=== PATIENT | male | born 1935 | race Caucasian/White ===

== ENCOUNTER 2016-10-29 02:21 | Emergency (ER) | payer MEDICARE, OTHER ==
[~2016-10-29] VITALS: Ht 172.7 cm; Wt 99.8 kg
[2016-10-29] MEDS ORDERED: METO25TA74 PO (02:30)
[2016-10-29] MEDS ORDERED: ASPI81TA85 PO (02:32)
[2016-10-29] MEDS ORDERED: LISI10TA4 PO (02:32)
[2016-10-29] MEDS ORDERED: PLAV75TA38 PO (02:32)
[2016-10-29] MEDS ORDERED: LEVO88TA3 PO (02:33)
[2016-10-29] MEDS ORDERED: ZETI10TA2 PO (02:35)
[2016-10-29] MEDS ORDERED: SIMV40TA2 PO (02:35)
[2016-10-29 03:24] LABS: BASO % 0.6 % (0.0-1.0); EOS # 0.2 K/mm3 (0.0-0.50); EOS % 4.5 % (0.0-3.0); LARGE UNSTAINED CELL # 0.2 K/mm3 (0.0-0.4); LARGE UNSTAINED CELL % 2.9 % (0.0-4.0); LYMPH % 33.6 % (24.0-44.0); MEAN CORPUSCULAR HEMOGLOBIN 28.5 pg (27.0-33.0); MEAN CORPUSCULAR HGB CONC 32.4 g/dl (32.0-36.5); MONO # 0.4 K/mm3 (0.0-0.8); MONO % 7.6 % (0.0-5.0); NEUTROPHILS # 2.8 K/mm3 (1.8-7.7); NEUTROPHILS % 50.8 % (36.0-66.0); PLATELET COUNT, AUTOMATED 216 k/mm3 (150-450); RED CELL DISTRIBUTION WIDTH 13.6 % (11.5-14.5); WHITE BLOOD COUNT 5.4 K/mm3 (4.0-10.0)
[2016-10-29 03:39] LABS: INR 1.01
[2016-10-29 03:48] LABS: ALBUMIN 3.6 GM/DL (3.2-5.2); ALBUMIN/GLOBULIN RATIO 1.33 (1.00-1.93); ALKALINE PHOSPHATASE 69 U/L (45-117); ALT/SGPT 32 U/L (12-78); ANION GAP 11 MEQ/L (8-16); AST/SGOT 28 U/L (15-37); BILIRUBIN,DIRECT < 0.1 MG/DL (0.0-0.2); BILIRUBIN,TOTAL 0.3 MG/DL (0.2-1.0); BLOOD UREA NITROGEN 27 MG/DL (7-18); CALCIUM LEVEL 8.5 MG/DL (8.8-10.2); CARBON DIOXIDE LEVEL 24 MEQ/L (21-32); CHLORIDE LEVEL 107 MEQ/L (98-107); CREATININE FOR GFR 1.01 MG/DL (0.70-1.30); FREE T4 0.75 NG/DL (0.76-1.46); GLOMERULAR FILTRATION RATE > 60.0 (>35); GLUCOSE, FASTING 103 MG/DL (83-110); POTASSIUM SERUM 4.1 MEQ/L (3.5-5.1); SODIUM LEVEL 142 MEQ/L (136-145); TOTAL PROTEIN 6.3 GM/DL (6.4-8.2)
[2016-10-29] MEDS ORDERED: ISOVUE-370 76% 100ML VIAL (Q9967) As Ordered ONE (04:33)
--- NOTE | 2016-10-29 05:20 | REPUSA ---
CLINICAL HISTORY: Dyspnea, exclude PE. TECHNIQUE: Multiple incremental axial, coronal and oblique images are obtained from the thoracic inle t to the upper abdomen. Intravenous contrast material was administered as per pulmonary embolism prot ocol. COMMENTS: Pacemaker wires are in good position. Diffuse bilateral interstitial pulmonary thickening. Cardiomegaly. Mild central pulmonary venous congestion. Limited evaluation of the aorta due to the phase of the contrast. Prior CABG. There is excellent opacification of pulmonary arterial system without evidence for pulmonary embolism . There is no evidence of pleural or parenchymal mass. There are no pleural effusions. There is no evid ence of hilar or mediastinal lymphadenopathy. The heart and great vessels are within normal limits. Images of the upper abdomen demonstrate no evidence of adrenal mass. The bony structures are free of lytic or blastic lesions. Multilevel degenerative changes are seen in volving the visualized thoracolumbar spine. Scattered calcifications are seen involving the aorta and major branches compatible with atherosclero sis. IMPRESSION: No evidence for pulmonary embolism. Mild congestive heart failure. Pulmonary hypertension. Chronic interstitial pulmonary disease. Mild congestion. Thank you for your kind referral of this patient.
--- NOTE | 2016-10-29 09:25 | REP ---
PORTABLE CHEST: AP portable view of the chest is performed and compared to prior study of 02/15/2016. There is cardiomegaly. Diffuse interstitial fibrosis appears unchanged. There is no evidence of acute infiltrate. Multiple sternal wires and mediastinal clips are present. The mediastinal silhouette is unchanged. Left single lead pacemaker is noted. IMPRESSION: Cardiomegaly. Chronic fibrotic changes. No evidence of acute infiltrate. Signed by Raciel Ludwig MD 10/29/2016 04:48 P
--- NOTE | 2016-10-29 09:28 | ECGEPIP ---
Stationary ECG Study [facility] - ED Test Date: 2016-10-29 Pat Name: SERENITY OBRIEN Department: Room: - Gender: M [employer]: leonardo : 1935 Requested By: LUISA Grayson Order Number: [id number] Reading MD: Katia Goins Measurements Intervals [place] Rate: 47 P: 37 [place]: 198 QRS: -55 QRSD: 185 T: 97 QT: 474 QTc: 422 Interpretive Statements SINUS BRADYCARDIA MARKED LEFT AXIS DEVIATION LEFT BUNDLE BRANCH BLOCK SIMILAR 02/15/16 Electronically Signed On 10-29-2016 9:28:26 EDT by Katia Goins
--- NOTE | 2016-10-29 09:32 | ECGEPIP ---
Stationary ECG Study [facility] - ED Test Date: 2016-10-29 Pat Name: SERENITY OBRIEN Department: Room: - Gender: M [employer]: sb : 1935 Requested By: LUISA Grayson Order Number: [id number] Reading MD: Katia Goins Measurements Intervals [place] Rate: 39 P: 40 [place]: 182 QRS: -52 QRSD: 178 T: 102 QT: 504 QTc: 410 Interpretive Statements ELECTRONIC VENTRICULAR PACEMAKER ABNORMAL RHYTHM ECG SINUS RHYTHM Electronically Signed On 10-29-2016 9:32:12 EDT by Katia Goins
[2016-10-29 11:19] VITALS: BP 145/70
== END 2016-10-29 11:44 | disposition home or self-care (01) ==
LOC: M ED 03:28
DX: R07.89 Other chest pain (principal); R94.31 Abnormal electrocardiogram [ECG] [EKG]; I44.7 Left bundle-branch block, unspecified; I48.91 Unspecified atrial fibrillation; I25.2 Old myocardial infarction; Z95.5 Presence of coronary angioplasty implant and graft; Z95.1 Presence of aortocoronary bypass graft; Z82.49 Family history of ischemic heart disease and other diseases of the circulatory system; Z88.2 Allergy status to sulfonamides; Z79.899 Other long term (current) drug therapy; Z79.02 Long term (current) use of antithrombotics/antiplatelets; Z79.82 Long term (current) use of aspirin
CPT/HCPCS: 36415; 71010; 71275; 80048; 80076; 82550; 82553; 83690; 83880; 84439; 84443; 84484; 85025; 85379; 85610; 85730; 93005; 93041; 99285; Q9967

== ENCOUNTER 2020-11-04 19:09 | Emergency (ER) | payer OTHER, MEDICARE ==
[~2020-11-04] VITALS: Ht 170.2 cm; Wt 103.9 kg
[~2020-11-04 19:09] MED LIST: ASPI81TA86 PO; LEVO88TA3 PO; LISI10TA22 PO; METO1TAB32 PO; PLAV1TAB2 PO; SIMV40TA20 PO; ZETI10TA16 PO
[2020-11-04 22:23] VITALS: BP 148/72
== END 2020-11-04 22:24 | disposition home or self-care (01) ==
LOC: M ED 19:09
DX: Z04.1 Encounter for examination and observation following transport accident (principal); Z95.1 Presence of aortocoronary bypass graft; Z95.810 Presence of automatic (implantable) cardiac defibrillator; R51.9 Headache, unspecified; R07.9 Chest pain, unspecified; I10 Essential (primary) hypertension; E78.00 Pure hypercholesterolemia, unspecified; E03.9 Hypothyroidism, unspecified; Z79.82 Long term (current) use of aspirin; Z79.899 Other long term (current) drug therapy; Z88.2 Allergy status to sulfonamides

== ENCOUNTER → 2020-11-11 | Outpatient (CLI) | payer MEDICARE, OTHER | LOC: M LABSMTC 09:55 | PROVIDERS: ATTEND Family Medicine Sports Medicine | DX: Z01.812 Encounter for preprocedural laboratory examination (principal); Z20.822 Contact with and (suspected) exposure to COVID-19 ==

== ENCOUNTER → 2021-02-14 | Outpatient (CLI) | payer MEDICARE, OTHER | LOC: M LABSMTC 11:04 | PROVIDERS: ATTEND Internal Medicine Cardiovascular Disease | DX: Z11.52 Encounter for screening for COVID-19 (principal) ==

== ENCOUNTER → 2021-10-04 | Outpatient (CLI) | payer MEDICARE, OTHER | LOC: M LABSMTC 08:50 | PROVIDERS: ATTEND Internal Medicine Cardiovascular Disease | DX: Z20.822 Contact with and (suspected) exposure to COVID-19 (principal) ==

== ENCOUNTER → 2021-10-22 | Outpatient (CLI) | payer MEDICARE, OTHER | LOC: M LABSMTC 10:11 | PROVIDERS: ATTEND Nurse Practitioner Family | DX: Z11.52 Encounter for screening for COVID-19 (principal) ==

== ENCOUNTER 2021-11-09 11:28 | Observation (INO) | payer MEDICARE, OTHER ==
[~2021-11-09] VITALS: Ht 170.2 cm; Wt 97.2 kg
[2021-11-09 12:06] LABS: BASO % 0.5 % (0.0-1.0); EOS # 0.1 10^3/uL (0.0-0.5); EOS % 1.8 % (0.0-3.0); HEMATOCRIT 34.9 % (42.0-52.0); HEMOGLOBIN 11.5 g/dl (13.5-17.5); LYMPH # 1.2 10^3/uL (1.5-5.0); MEAN CORPUSCULAR HEMOGLOBIN 30.2 pg (27.0-33.0); MEAN CORPUSCULAR VOLUME 91.6 fl (80.0-96.0); MONO # 0.7 10^3/uL (0.0-0.8); MONO % 12.1 % (2.0-8.0); NEUTROPHILS % 65.1 % (36.0-66.0); PLATELET COUNT, AUTOMATED 167 10^3/uL (150-450); RED BLOOD COUNT 3.81 10^6/uL (4.30-6.10); WHITE BLOOD COUNT 6.1 10^3/uL (4.0-10.0)
[2021-11-09 12:48] LABS: ALBUMIN 3.7 GM/DL (3.2-5.2); ALT/SGPT 23 U/L (12-78); BILIRUBIN,DIRECT 0.1 MG/DL (0.0-0.2); BILIRUBIN,TOTAL 0.4 MG/DL (0.2-1.0); BLOOD UREA NITROGEN 13 MG/DL (7-18); CALCIUM LEVEL 9.1 MG/DL (8.8-10.2); CARBON DIOXIDE LEVEL 25 MEQ/L (21-32); CHLORIDE LEVEL 108 MEQ/L (98-107); CREATININE FOR GFR 0.95 MG/DL (0.70-1.30); GLOMERULAR FILTRATION RATE > 60.0 (>35); GLUCOSE, FASTING 105 MG/DL (70-100); NT-PRO BNP 802 PG/ML (<450); SODIUM LEVEL 140 MEQ/L (136-145); THYROID STIMULATING HORMONE 0.632 uIU/ML (0.358-3.740)
[2021-11-09] MEDS ORDERED: ENTR1TAB7 PO (12:49)
[2021-11-09] MEDS ORDERED: OMEP-173 PO (12:49)
[2021-11-09] MEDS ORDERED: ASPI81TA26 PO ×2 (12:49→14:33)
[2021-11-09] MEDS ORDERED: CETI-24 PO (12:49)
[2021-11-09] MEDS ORDERED: EZET10TA21 PO (12:49)
[2021-11-09] MEDS ORDERED: CHLO125TA PO (12:49)
[2021-11-09] MEDS ORDERED: SYNT50TA PO (12:49)
[2021-11-09] MEDS ORDERED: ALPR0.25 PO (12:50)
[2021-11-09 12:53] LABS: RSV AMPLIFICATION NEGATIVE (NEGATIVE)
[2021-11-09] MEDS ORDERED: FUROSEMIDE 40MG/4ML VIAL (J1940) IV ONE (13:15)
[2021-11-09] MEDS ORDERED: ROSU10TA6 PO (14:33)
[2021-11-09] MEDS ORDERED: ACET1TAB55 PO (14:34)
[2021-11-09] MEDS ORDERED: REFR0.1D OU (14:34)
[2021-11-09] MEDS ORDERED: HOME MED LIST COMPLETE! XX SCH (14:35)
[2021-11-09 15:23] LABS: INR 1.08; PROTHROMBIN TIME 14.4 SECONDS (12.7-14.5)
[2021-11-09 15:24] LABS: PARTIAL THROMBOPLASTIN TIME 38.7 SECONDS (25.9-37.0)
[2021-11-09 15:26] LABS: D-DIMER QUANT 788.09 ng/ml (<500)
[2021-11-09 15:38] LABS: C REACTIVE PROTEIN QUANTITATIV 8.33 MG/DL (0.00-0.30)
[2021-11-09 16:28] VITALS: BP 148/68
[2021-11-09] MEDS ORDERED: ALPRAZolam 0.25 MG TAB PO PRN (16:30)
[2021-11-09] MEDS: ACETAMINOPHEN TAB 650MG DOSE (2X325MG) PO PRN ×2 (17:10→22:54)
[2021-11-09] MEDS: POLYVINYL ALCOHOL OPHTH SOLN 15 ML(LIQUITEARS) OU SCH ×2 (17:53→20:21)
[2021-11-09] MEDS ORDERED: REMDESIVIR 200 MG in NS 250 ML IV ONE (18:00)
[2021-11-09] MEDS: NS 1,000 ML IV SCH (18:02)
[2021-11-09] MEDS ORDERED: DOCUSATE SODIUM 100MG CAPSULE PO PRN (18:50)
[2021-11-09] MEDS ORDERED: BISACODYL 5 MG TAB PO PRN (18:50)
[2021-11-09] MEDS ORDERED: SODIUM CHLORIDE 0.9% INJ 10 ML SYR IV ONE (19:00)
[2021-11-09 19:53] VITALS: BP 106/57
[2021-11-09] MEDS: OMEPRAZOLE 20MG CAP PO SCH (20:21)
[2021-11-09] MEDS: ENTRESTO 49-51MG TABLET (SACUBITRIL/VALSARTAN) PO SCH (20:21)
[2021-11-09] MEDS: RAMELTEON 8 MG TAB (ROZEREM) PO PRN (23:01)
[2021-11-10 04:00] VITALS: BP 135/63
[2021-11-10] MEDS: LEVOTHYROXINE 50MCG TABLET (0.05MG) PO SCH (05:52)
[2021-11-10] MEDS: ACETAMINOPHEN TAB 650MG DOSE (2X325MG) PO PRN ×2 (05:53→20:19)
[2021-11-10 06:40] LABS: HEMATOCRIT 31.7 % (42.0-52.0); HEMOGLOBIN 10.2 g/dl (13.5-17.5); MEAN CORPUSCULAR HEMOGLOBIN 29.3 pg (27.0-33.0); MEAN CORPUSCULAR HGB CONC 32.2 g/dl (32.0-36.5); MEAN CORPUSCULAR VOLUME 91.1 fl (80.0-96.0); PLATELET COUNT, AUTOMATED 145 10^3/uL (150-450); RED BLOOD COUNT 3.48 10^6/uL (4.30-6.10)
[2021-11-10 07:12] LABS: ALBUMIN 3.2 GM/DL (3.2-5.2); ALT/SGPT 19 U/L (12-78); BILIRUBIN,TOTAL 0.5 MG/DL (0.2-1.0); BLOOD UREA NITROGEN 18 MG/DL (7-18); CALCIUM LEVEL 8.4 MG/DL (8.8-10.2); CARBON DIOXIDE LEVEL 24 MEQ/L (21-32); CHLORIDE LEVEL 109 MEQ/L (98-107); CREATININE FOR GFR 0.98 MG/DL (0.70-1.30); GLOMERULAR FILTRATION RATE > 60.0 (>35); GLUCOSE, FASTING 102 MG/DL (70-100); POTASSIUM SERUM 3.5 MEQ/L (3.5-5.1); SODIUM LEVEL 140 MEQ/L (136-145); TOTAL PROTEIN 5.8 GM/DL (6.4-8.2)
[2021-11-10] MEDS: NS 1,000 ML IV SCH (08:19)
[2021-11-10] MEDS: CHLORTHALIDONE 25 MG TAB PO SCH (08:20)
[2021-11-10] MEDS: LIDOCAINE 5% (LIDODERM) PATCH TD SCH (08:20)
[2021-11-10] MEDS: CETIRIZINE (ZyrTEC) 10 MG TAB PO SCH (08:20)
[2021-11-10] MEDS: CLOPIDOGREL 75 MG TAB PO SCH (08:20)
[2021-11-10] MEDS: OMEPRAZOLE 20MG CAP PO SCH ×2 (08:20→20:18)
[2021-11-10] MEDS: ASPIRIN 81MG ENTERIC TABLET PO SCH (08:20)
[2021-11-10] MEDS: ROSUVASTATIN 10 MG TAB (CRESTOR) PO SCH (08:20)
[2021-11-10 08:21] VITALS: BP 129/67
[2021-11-10] MEDS: POLYVINYL ALCOHOL OPHTH SOLN 15 ML(LIQUITEARS) OU SCH ×4 (08:21→21:02)
[2021-11-10] MEDS: METOPROLOL SUCC *XL* 12.5MG PER 1/2 TAB (TopROL *XL*) PO SCH (08:21)
[2021-11-10] MEDS: EZETIMIBE 10MG TABLET (ZETIA) PO SCH (08:21)
[2021-11-10] MEDS: ENTRESTO 49-51MG TABLET (SACUBITRIL/VALSARTAN) PO SCH ×2 (08:22→20:18)
[2021-11-10] MEDS: REMDESIVIR 100 MG in NS 250 ML IV SCH (13:30)
[2021-11-10 13:43] VITALS: BP 123/64
[2021-11-10] MEDS ORDERED: SODIUM CHLORIDE 0.9% INJ 10 ML SYR IV SCH ×2 (16:00→19:00)
[2021-11-10] MEDS ORDERED: REMDESIVIR 100 MG in NS 250 ML IV SCH (18:00)
[2021-11-10] MEDS ORDERED: **NOTE PATIENT COMMENT** MISC XX SCH (19:00)
[2021-11-10 20:04] VITALS: BP 137/66
[2021-11-10] MEDS: RAMELTEON 8 MG TAB (ROZEREM) PO PRN (20:17)
[2021-11-11] MEDS: LEVOTHYROXINE 50MCG TABLET (0.05MG) PO SCH (05:59)
[2021-11-11 06:00] VITALS: BP 140/73
[2021-11-11 06:12] LABS: HEMATOCRIT 35.4 % (42.0-52.0); HEMOGLOBIN 11.7 g/dl (13.5-17.5); MEAN CORPUSCULAR HEMOGLOBIN 29.9 pg (27.0-33.0); MEAN CORPUSCULAR HGB CONC 33.1 g/dl (32.0-36.5); MEAN CORPUSCULAR VOLUME 90.5 fl (80.0-96.0); PLATELET COUNT, AUTOMATED 164 10^3/uL (150-450); RED BLOOD COUNT 3.91 10^6/uL (4.30-6.10); WHITE BLOOD COUNT 5.2 10^3/uL (4.0-10.0)
[2021-11-11 06:37] LABS: ALBUMIN 3.4 GM/DL (3.2-5.2); ALT/SGPT 22 U/L (12-78); BILIRUBIN,TOTAL 0.3 MG/DL (0.2-1.0); BLOOD UREA NITROGEN 19 MG/DL (7-18); CALCIUM LEVEL 9.1 MG/DL (8.8-10.2); CARBON DIOXIDE LEVEL 25 MEQ/L (21-32); CHLORIDE LEVEL 108 MEQ/L (98-107); CREATININE FOR GFR 0.99 MG/DL (0.70-1.30); GLOMERULAR FILTRATION RATE > 60.0 (>35); GLUCOSE, FASTING 99 MG/DL (70-100); POTASSIUM SERUM 3.8 MEQ/L (3.5-5.1); SODIUM LEVEL 139 MEQ/L (136-145); TOTAL PROTEIN 6.7 GM/DL (6.4-8.2)
[2021-11-11] MEDS: OMEPRAZOLE 20MG CAP PO SCH (08:45)
[2021-11-11] MEDS: ENTRESTO 49-51MG TABLET (SACUBITRIL/VALSARTAN) PO SCH (08:45)
[2021-11-11] MEDS: CLOPIDOGREL 75 MG TAB PO SCH (08:45)
[2021-11-11] MEDS: CETIRIZINE (ZyrTEC) 10 MG TAB PO SCH (08:45)
[2021-11-11] MEDS: ASPIRIN 81MG ENTERIC TABLET PO SCH (08:45)
[2021-11-11] MEDS: ROSUVASTATIN 10 MG TAB (CRESTOR) PO SCH (08:45)
[2021-11-11] MEDS: CHLORTHALIDONE 25 MG TAB PO SCH (08:45)
[2021-11-11] MEDS: EZETIMIBE 10MG TABLET (ZETIA) PO SCH (08:45)
[2021-11-11] MEDS: METOPROLOL SUCC *XL* 12.5MG PER 1/2 TAB (TopROL *XL*) PO SCH ×2 (08:48→09:00)
[2021-11-11] MEDS: POLYVINYL ALCOHOL OPHTH SOLN 15 ML(LIQUITEARS) OU SCH (08:48)
[2021-11-11] MEDS: LIDOCAINE 5% (LIDODERM) PATCH TD SCH (08:49)
[2021-11-11] MEDS: REMDESIVIR 100 MG in NS 250 ML IV SCH (11:31)
[2021-11-11] MEDS ORDERED: REMDESIVIR 100 MG in NS 250 ML IV SCH (12:00)
== END 2021-11-11 13:30 | disposition home health service (06) ==
LOC: M ED 11:28 → M ED INP 11:29 → INTOOBSV 14:04 → M ED INP 14:04 → UNDOADMOB 14:04 → ENRESERV 15:04 → M ED INP 16:28 → M 4MAIN 16:28
PROVIDERS: ADMIT Internal Medicine; ATTEND Internal Medicine
DX: U07.1 COVID-19 (principal); I28.8 Other diseases of pulmonary vessels; I25.10 Atherosclerotic heart disease of native coronary artery without angina pectoris; Z95.1 Presence of aortocoronary bypass graft; Z95.5 Presence of coronary angioplasty implant and graft; Z95.0 Presence of cardiac pacemaker; G47.33 Obstructive sleep apnea (adult) (pediatric); F41.9 Anxiety disorder, unspecified; F32.A Depression, unspecified; I11.9 Hypertensive heart disease without heart failure; E78.5 Hyperlipidemia, unspecified; E03.9 Hypothyroidism, unspecified; K21.9 Gastro-esophageal reflux disease without esophagitis; R94.31 Abnormal electrocardiogram [ECG] [EKG]; I44.7 Left bundle-branch block, unspecified; M79.89 Other specified soft tissue disorders; Z91.81 History of falling; Z88.2 Allergy status to sulfonamides; Z79.899 Other long term (current) drug therapy; Z79.82 Long term (current) use of aspirin; Z79.02 Long term (current) use of antithrombotics/antiplatelets; Z87.891 Personal history of nicotine dependence
CPT/HCPCS: 36415; 71045; 80047; 80048; 80053; 80076; 82550; 82728; 83615; 83880; 84443; 84484; 85025; 85027; 85379; 85384; 85610; 85730; 86140; 87631; 93005; 96361; 96365; 96366; 96375; 96376; 97161; 99284; G0378; J0248; J1940

== ENCOUNTER 2023-01-09 15:16 | Inpatient (IN) | payer MEDICARE, OTHER ==
[~2023-01-09] VITALS: Ht 167.6 cm; Wt 90.3 kg
[~2023-01-09 15:16] MED LIST changes: +ACET1TAB55 PO; +ALPR0.25 PO; +ASPI81TA26 PO; +CETI-24 PO; +CHLO125TA PO; +CLOP75TA99 PO; +ENTR1TAB7 PO; +EZET10TA21 PO; +OMEP-173 PO; -PLAV1TAB2 PO; +REFR0.1D OU; +ROSU10TA6 PO; +SYNT50TA PO
[2023-01-09 16:18] LABS: BASO % 0.3 % (0.0-1.0); EOS # 0.2 10^3/uL (0.0-0.5); EOS % 1.9 % (0.0-3.0); HEMATOCRIT 38.2 % (42.0-52.0); HEMOGLOBIN 12.6 g/dl (13.5-17.5); LYMPH # 1.3 10^3/uL (1.5-5.0); LYMPH % 13.8 % (24.0-44.0); MEAN CORPUSCULAR HEMOGLOBIN 29.4 pg (27.0-33.0); MONO # 0.7 10^3/uL (0.0-0.8); MONO % 7.4 % (2.0-8.0); NEUTROPHILS # 7.1 10^3/uL (1.5-8.5); NEUTROPHILS % 76.3 % (36.0-66.0); PLATELET COUNT, AUTOMATED 195 10^3/uL (150-450); RED BLOOD COUNT 4.29 10^6/uL (4.30-6.10); WHITE BLOOD COUNT 9.3 10^3/uL (4.0-10.0)
[2023-01-09 16:29] LABS: INR 0.96
[2023-01-09 16:38] LABS: LIPASE 32 U/L (12-53)
[2023-01-09 16:40] LABS: AMYLASE 84 U/L (30-118)
[2023-01-09 16:51] LABS: ALBUMIN 4.4 G/DL (3.2-5.2); ALKALINE PHOSPHATASE 60 U/L (46-116); ALT/SGPT 18 U/L (7.0-40); AST/SGOT < 8 U/L (<34); BILIRUBIN,DIRECT 0.1 MG/DL (<0.4); BILIRUBIN,TOTAL 0.4 MG/DL (0.3-1.2); BLOOD UREA NITROGEN 19 MG/DL (9-23); CALCIUM LEVEL 10.2 MG/DL (8.3-10.6); CARBON DIOXIDE LEVEL 26 MMOL/L (20-31); CHLORIDE LEVEL 105 MMOL/L (98-107); CREATININE FOR GFR 0.83 MG/DL (0.70-1.30); GLOMERULAR FILTRATION RATE > 60.0 (>35); GLUCOSE, FASTING 98 MG/DL (74-106); POTASSIUM SERUM 4.1 MMOL/L (3.5-5.1); SODIUM LEVEL 139 MMOL/L (136-145); TOTAL PROTEIN 7.1 G/DL (5.7-8.2)
[2023-01-09] MEDS ORDERED: ISOVUE-370 76% 100ML VIAL As Ordered ONE (16:56)
[2023-01-09] MEDS ORDERED: ONDANSETRON 4MG 2ML VIAL IV ONE (18:05)
[2023-01-09] MEDS ORDERED: MORPHINE 2 MG/ML 1ML VIAL IV PRN (18:05)
[2023-01-09] MEDS ORDERED: LIDOCAINE 2% MDV 20ML VIAL SC ONE (18:10)
[2023-01-09] MEDS ORDERED: FLEET ENEMA PR STA (18:26)
[2023-01-10] MEDS ORDERED: ACETAMINOPHEN TAB 650MG DOSE (2X325MG) PO PRN (00:25)
[2023-01-10] MEDS ORDERED: KETOROLAC 30 MG/ML 1ML VIAL IV PRN (01:50)
[2023-01-10 01:54] LABS: RSV AMPLIFICATION NEGATIVE (NEGATIVE)
[2023-01-10 02:30] VITALS: BP 137/63; TEMP 96.3; O2SAT 96
[2023-01-10 04:00] VITALS: BP 115/56; TEMP 96.4; O2SAT 93
[2023-01-10] MEDS ORDERED: FURO20TA2 PO (06:33)
[2023-01-10] MEDS ORDERED: VITA500T9 PO (06:33)
[2023-01-10] MEDS ORDERED: NITR0.1S PO (06:33)
[2023-01-10] MEDS ORDERED: DOCU100C16 PO (06:33)
[2023-01-10] MEDS ORDERED: ISOS120T7 PO (06:33)
[2023-01-10] MEDS ORDERED: HOME MED LIST COMPLETE! XX SCH (06:35)
[2023-01-10 07:28] VITALS: BP 116/57; TEMP 96.3; O2SAT 95
[2023-01-10] MEDS ORDERED: DOCUSATE SODIUM 100MG CAPSULE PO SCH (09:00)
[2023-01-10] MEDS ORDERED: MIRALAX *UNIT DOSE* 17GM PACKET PO SCH (09:00)
[2023-01-10] MEDS ORDERED: METAMUCIL (PSYLLIUM) PACKET PO SCH (09:00)
[2023-01-10] MEDS ORDERED: ENOXAPARIN 40MG/0.4ML SYRINGE (J1650 PER 10MG) SC SCH (09:00)
[2023-01-10] MEDS ORDERED: META1POW PO (09:28)
[2023-01-10] MEDS ORDERED: MIRA1POW3 PO (09:28)
[2023-01-10] MEDS ORDERED: FLOM0.4C39 PO (11:19)
== END 2023-01-10 12:31 | disposition home health service (06) | DRG 728 ==
LOC: EDBD 15:16 → M ED 15:16 → M ED INP 23:55 → M PCU 01-10 02:27
PROVIDERS: ADMIT Family Medicine; ATTEND Family Medicine
PROC: 0H8AXZZ Division of Inguinal Skin, External Approach (ICD-10-PCS; principal; 2023-01-09)
DX: N47.2 Paraphimosis (principal); I50.22 Chronic systolic (congestive) heart failure; K56.41 Fecal impaction; R53.1 Weakness; R33.9 Retention of urine, unspecified; I25.10 Atherosclerotic heart disease of native coronary artery without angina pectoris; Z95.5 Presence of coronary angioplasty implant and graft; I11.0 Hypertensive heart disease with heart failure; E78.5 Hyperlipidemia, unspecified; E03.9 Hypothyroidism, unspecified; F41.9 Anxiety disorder, unspecified; F32.A Depression, unspecified; K21.9 Gastro-esophageal reflux disease without esophagitis; Z90.49 Acquired absence of other specified parts of digestive tract; Z87.891 Personal history of nicotine dependence; B96.20 Unspecified Escherichia coli [E. coli] as the cause of diseases classified elsewhere; Z79.82 Long term (current) use of aspirin; Z79.890 Hormone replacement therapy; Z79.899 Other long term (current) drug therapy; Z88.2 Allergy status to sulfonamides; Z20.822 Contact with and (suspected) exposure to COVID-19

== ENCOUNTER 2023-01-13 15:12 | Emergency (ER) | payer MEDICARE, OTHER ==
[~2023-01-13] VITALS: Ht 170.2 cm; Wt 90.9 kg
[~2023-01-13 15:12] MED LIST changes: +DOCU100C16 PO; +FLOM0.4C39 PO; +FURO20TA2 PO; +ISOS120T7 PO; +META1POW PO; +MIRA1POW3 PO; +NITR0.1S PO; +VITA500T9 PO
[2023-01-13 18:00] VITALS: TEMP 98.7
[2023-01-13] MEDS ORDERED: NS 1,000 ML IV ONE (18:35)
[2023-01-13 19:12] VITALS: BP 108/57; O2SAT 97
[2023-01-13 19:20] LABS: BASO % 0.6 % (0.0-1.0); EOS # 0.2 10^3/uL (0.0-0.5); EOS % 3.6 % (0.0-3.0); HEMATOCRIT 33.3 % (42.0-52.0); HEMOGLOBIN 10.9 g/dl (13.5-17.5); LYMPH # 1.5 10^3/uL (1.5-5.0); MEAN CORPUSCULAR HEMOGLOBIN 29.2 pg (27.0-33.0); MEAN CORPUSCULAR HGB CONC 32.7 g/dl (32.0-36.5); MEAN CORPUSCULAR VOLUME 89.3 fl (80.0-96.0); MONO # 0.6 10^3/uL (0.0-0.8); MONO % 8.7 % (2.0-8.0); NEUTROPHILS % 62.9 % (36.0-66.0); PLATELET COUNT, AUTOMATED 184 10^3/uL (150-450); RED BLOOD COUNT 3.73 10^6/uL (4.30-6.10); WHITE BLOOD COUNT 6.4 10^3/uL (4.0-10.0)
[2023-01-13 19:34] LABS: ERYTHROCYTE SEDIMENTATION RATE 26 mm/hr (0-20)
[2023-01-13 19:41] LABS: APPEARANCE, URINE CLOUDY (CLEAR); BACTERIA, URINE AUTO 1+ (NEGATIVE); BILIRUBIN, URINE AUTO NEGATIVE (NEGATIVE); BLOOD, URINE BLOOD 3+ (NEGATIVE); COLOR, URINE YELLOW (YELLOW); GLUCOSE, URINE (UA) AUTO NEGATIVE (NEGATIVE); KETONE, URINE AUTO TRACE mg/dL (NEGATIVE); LEUKOCYTE ESTERASE, URINE AUTO 3+ (NEGATIVE); MUCUS, URINE SMALL (NEGATIVE); NITRITE, URINE AUTO POSITIVE (NEGATIVE); PROTEIN, URINE AUTO 2+ mg/dL (NEGATIVE); RBC, URINE AUTO TNTC /HPF (0-3); SPECIFIC GRAVITY URINE AUTO 1.017 (1.002-1.035); SQUAMOUS EPITHELIAL CELL UR AU 2 /HPF (0-6); UROBILINOGEN, URINE AUTO 0.2 mg/dL (0.0-2.0); WBC, URINE AUTO 163 /HPF (0-3)
== END 2023-01-13 21:40 | disposition home or self-care (01) ==
LOC: M ED 15:12
DX: T83.098A Other mechanical complication of other urinary catheter, initial encounter (principal); R33.9 Retention of urine, unspecified; I11.9 Hypertensive heart disease without heart failure; I50.20 Unspecified systolic (congestive) heart failure; I25.2 Old myocardial infarction; R51.9 Headache, unspecified; G47.33 Obstructive sleep apnea (adult) (pediatric); E03.9 Hypothyroidism, unspecified; Z95.5 Presence of coronary angioplasty implant and graft

== ENCOUNTER 2023-01-16 08:26 | Emergency (ER) | payer MEDICARE, OTHER ==
[~2023-01-16] VITALS: Ht 170.2 cm; Wt 91.2 kg
[2023-01-16] MEDS ORDERED: NS 500 ML IV ONE (11:25)
[2023-01-16] MEDS ORDERED: cefTRIAXone SOD 1 GM in D5W MINI-BAG PLUS 50 ML IV ONE (11:25)
[2023-01-16 12:01] LABS: BASO % 0.5 % (0.0-1.0); EOS # 0.3 10^3/uL (0.0-0.5); EOS % 4.7 % (0.0-3.0); HEMATOCRIT 34.5 % (42.0-52.0); HEMOGLOBIN 11.3 g/dl (13.5-17.5); LYMPH # 1.7 10^3/uL (1.5-5.0); LYMPH % 24.8 % (24.0-44.0); MEAN CORPUSCULAR HEMOGLOBIN 29.2 pg (27.0-33.0); MEAN CORPUSCULAR HGB CONC 32.8 g/dl (32.0-36.5); MEAN CORPUSCULAR VOLUME 89.1 fl (80.0-96.0); MONO # 0.6 10^3/uL (0.0-0.8); MONO % 8.9 % (2.0-8.0); NEUTROPHILS % 60.8 % (36.0-66.0); PLATELET COUNT, AUTOMATED 196 10^3/uL (150-450); RED BLOOD COUNT 3.87 10^6/uL (4.30-6.10); WHITE BLOOD COUNT 6.6 10^3/uL (4.0-10.0)
[2023-01-16 12:03] LABS: APPEARANCE, URINE HAZY (CLEAR); BACTERIA, URINE AUTO 2+ (NEGATIVE); BILIRUBIN, URINE AUTO NEGATIVE (NEGATIVE); BLOOD, URINE BLOOD 3+ (NEGATIVE); COLOR, URINE YELLOW (YELLOW); GLUCOSE, URINE (UA) AUTO NEGATIVE (NEGATIVE); KETONE, URINE AUTO NEGATIVE (NEGATIVE); LEUKOCYTE ESTERASE, URINE AUTO 3+ (NEGATIVE); MUCUS, URINE SMALL (NEGATIVE); NITRITE, URINE AUTO POSITIVE (NEGATIVE); PROTEIN, URINE AUTO 2+ mg/dL (NEGATIVE); RBC, URINE AUTO 102 /HPF (0-3); SPECIFIC GRAVITY URINE AUTO 1.017 (1.002-1.035); SQUAMOUS EPITHELIAL CELL UR AU 0 /HPF (0-6); UROBILINOGEN, URINE AUTO 0.2 mg/dL (0.0-2.0); WBC, URINE AUTO 103 /HPF (0-3)
[2023-01-16 12:30] LABS: BLOOD UREA NITROGEN 15 MG/DL (9-23); CALCIUM LEVEL 8.9 MG/DL (8.3-10.6); CARBON DIOXIDE LEVEL 22 MMOL/L (20-31); CHLORIDE LEVEL 106 MMOL/L (98-107); CREATININE FOR GFR 0.78 MG/DL (0.70-1.30); GLOMERULAR FILTRATION RATE > 60.0 (>35); GLUCOSE, FASTING 92 MG/DL (74-106); POTASSIUM SERUM 4.1 MMOL/L (3.5-5.1); SODIUM LEVEL 140 MMOL/L (136-145)
[2023-01-16] MEDS ORDERED: BACI500O8 TOP (13:31)
[2023-01-16] MEDS ORDERED: CEFD300CAP PO (13:31)
[2023-01-16 14:12] VITALS: BP 137/65; TEMP 97.3; O2SAT 95
== END 2023-01-16 14:17 | disposition home or self-care (01) ==
LOC: M ED 08:26
DX: N39.0 Urinary tract infection, site not specified (principal); B96.20 Unspecified Escherichia coli [E. coli] as the cause of diseases classified elsewhere; N48.1 Balanitis; Z88.2 Allergy status to sulfonamides; Z79.899 Other long term (current) drug therapy; Z79.82 Long term (current) use of aspirin
CPT/HCPCS: 80047; 80048; 81001; 85025; 96365; 99284; J0696

== ENCOUNTER → 2023-02-02 | Outpatient (REF) | payer MEDICARE, OTHER ==
[~2023-02-02] MED LIST changes: +BACI500O8 TOP; +CEFD300CAP PO
[2023-02-02 18:28] LABS: APPEARANCE, URINE CLEAR (CLEAR); BACTERIA, URINE AUTO NEGATIVE (NEGATIVE); BILIRUBIN, URINE AUTO NEGATIVE (NEGATIVE); BLOOD, URINE BLOOD 3+ (NEGATIVE); COLOR, URINE STRAW (YELLOW); GLUCOSE, URINE (UA) AUTO NEGATIVE (NEGATIVE); KETONE, URINE AUTO NEGATIVE (NEGATIVE); LEUKOCYTE ESTERASE, URINE AUTO NEGATIVE (NEGATIVE); NITRITE, URINE AUTO NEGATIVE (NEGATIVE); PROTEIN, URINE AUTO NEGATIVE (NEGATIVE); RBC, URINE AUTO 15 /HPF (0-3); SPECIFIC GRAVITY URINE AUTO 1.005 (1.002-1.035); SQUAMOUS EPITHELIAL CELL UR AU 0 /HPF (0-6); UROBILINOGEN, URINE AUTO 0.2 mg/dL (0.0-2.0); WBC, URINE AUTO 1 /HPF (0-3)
== END ==
LOC: M SHH 17:27
PROVIDERS: ATTEND Physician Assistant
DX: R30.0 Dysuria (principal)

== ENCOUNTER 2023-06-19 11:00 | Emergency (ER) | payer MEDICARE, OTHER ==
[~2023-06-19] VITALS: Ht 170.2 cm; Wt 87.3 kg
[~2023-06-19 11:00] MED LIST changes: +EZET10TA58 PO; -ZETI10TA16 PO
[2023-06-19] MEDS ORDERED: VITA200012 PO (11:29)
[2023-06-19 12:02] LABS: BASO % 0.5 % (0.0-1.0); EOS # 0.3 10^3/uL (0.0-0.5); EOS % 5.6 % (0.0-3.0); HEMATOCRIT 35.1 % (42.0-52.0); HEMOGLOBIN 11.7 g/dl (13.5-17.5); LYMPH # 1.4 10^3/uL (1.5-5.0); LYMPH % 23.7 % (24.0-44.0); MEAN CORPUSCULAR HEMOGLOBIN 29.2 pg (27.0-33.0); MEAN CORPUSCULAR HGB CONC 33.3 g/dl (32.0-36.5); MEAN CORPUSCULAR VOLUME 87.5 fl (80.0-96.0); MONO # 0.5 10^3/uL (0.0-0.8); MONO % 8.7 % (2.0-8.0); NEUTROPHILS # 3.5 10^3/uL (1.5-8.5); NEUTROPHILS % 61.2 % (36.0-66.0); PLATELET COUNT, AUTOMATED 190 10^3/uL (150-450); RED BLOOD COUNT 4.01 10^6/uL (4.30-6.10); WHITE BLOOD COUNT 5.8 10^3/uL (4.0-10.0)
[2023-06-19 12:22] LABS: BLOOD UREA NITROGEN 17 MG/DL (9-23); CALCIUM LEVEL 9.1 MG/DL (8.3-10.6); CARBON DIOXIDE LEVEL 22 MMOL/L (20-31); CHLORIDE LEVEL 107 MMOL/L (98-107); CREATININE FOR GFR 0.74 MG/DL (0.70-1.30); GLOMERULAR FILTRATION RATE > 60.0 (>35); GLUCOSE, FASTING 123 MG/DL (74-106); POTASSIUM SERUM 4.3 MMOL/L (3.5-5.1); SODIUM LEVEL 138 MMOL/L (136-145)
[2023-06-19] MEDS ORDERED: NS 500 ML IV ONE (12:45)
[2023-06-19] MEDS ORDERED: ACETAMINOPHEN *IV* 500 MG in IV 1 EA IV ONE (12:45)
[2023-06-19] MEDS ORDERED: ISOVUE-370 76% 100ML VIAL As Ordered ONE (12:56)
[2023-06-19 13:57] LABS: INR 1.12; PROTHROMBIN TIME 14.1 SECONDS (12.5-14.5)
[2023-06-19 13:58] LABS: PARTIAL THROMBOPLASTIN TIME 34.4 SECONDS (24.8-34.2)
[2023-06-19 14:05] LABS: C REACTIVE PROTEIN QUANTITATIV < 0.40 MG/DL (<1.0)
[2023-06-19 14:09] LABS: THYROID STIMULATING HORMONE 0.828 uIU/ML (0.55-4.78)
[2023-06-19 16:15] VITALS: BP 151/76; TEMP 97.5; O2SAT 97
[2023-06-19] MEDS ORDERED: PRED20TA PO (16:18)
== END 2023-06-19 16:28 | disposition home or self-care (01) ==
LOC: M ED 11:00 → EDBD 11:00 → M ED 16:28
DX: R51.9 Headache, unspecified (principal); H53.8 Other visual disturbances; H53.10 Unspecified subjective visual disturbances; Z86.69 Personal history of other diseases of the nervous system and sense organs; I25.10 Atherosclerotic heart disease of native coronary artery without angina pectoris; E03.9 Hypothyroidism, unspecified; Z79.899 Other long term (current) drug therapy; Z88.2 Allergy status to sulfonamides
CPT/HCPCS: 70450; 70496; 70498; 80048; 84443; 85025; 85610; 85652; 85730; 86140; 93041; 94760; 96365; 99285; J0131; Q9967

== ENCOUNTER 2023-08-07 17:14 | Observation (INO) | payer MEDICARE, OTHER ==
[~2023-08-07] VITALS: Ht 170.2 cm; Wt 83.3 kg
[~2023-08-07 17:14] MED LIST changes: -MIRA1POW3 PO; +MIRA33506 PO; +PRED20TA PO; +VITA200012 PO
[2023-08-07] MEDS ORDERED: ISOVUE-370 76% 100ML VIAL As Ordered ONE (18:20)
[2023-08-07 19:22] LABS: HEMATOCRIT 36.5 % (42.0-52.0); HEMOGLOBIN 12.1 g/dl (13.5-17.5); MEAN CORPUSCULAR HEMOGLOBIN 28.7 pg (27.0-33.0); MEAN CORPUSCULAR HGB CONC 33.2 g/dl (32.0-36.5); MEAN CORPUSCULAR VOLUME 86.5 fl (80.0-96.0); PLATELET COUNT, AUTOMATED 222 10^3/uL (150-450); RED BLOOD COUNT 4.22 10^6/uL (4.30-6.10); WHITE BLOOD COUNT 7.2 10^3/uL (4.0-10.0)
[2023-08-07] MEDS: fentaNYL 100 MCG/2 ML INJECTION IV ONE (19:44)
[2023-08-07] MEDS ORDERED: SPIR-10 PO (20:52)
[2023-08-07] MEDS ORDERED: BRIL90TA PO (20:52)
[2023-08-07] MEDS ORDERED: HOME MED LIST COMPLETE! XX SCH (20:55)
[2023-08-07 22:27] VITALS: BP 121/60; TEMP 97.2; O2SAT 90
[2023-08-07] MEDS: ROSUVASTATIN 10 MG TAB (CRESTOR) PO SCH (23:01)
[2023-08-07] MEDS: TICAGRELOR 90 MG TABLET (BRILINTA) PO SCH (23:01)
[2023-08-07] MEDS: EZETIMIBE 10MG TABLET (ZETIA) PO SCH (23:01)
[2023-08-07] MEDS: CETIRIZINE (ZyrTEC) 10 MG TAB PO SCH (23:01)
[2023-08-07] MEDS: ACETAMINOPHEN TAB 650MG DOSE (2X325MG) PO PRN (23:02)
[2023-08-07] MEDS: METOPROLOL SUCC *XL* 25MG TAB (TopROL *XL*) PO SCH (23:03)
[2023-08-08] MEDS: ALPRAZolam 0.25 MG TAB PO PRN (01:56)
[2023-08-08] MEDS: PERCOCET 5MG/325MG TAB PO PRN ×2 (01:57→08:10)
[2023-08-08 04:50] VITALS: BP 122/60; TEMP 97.5; O2SAT 93
[2023-08-08] MEDS: LEVOTHYROXINE 50MCG TABLET (0.05MG) PO SCH (05:34)
[2023-08-08 07:50] LABS: BASO % 0.1 % (0.0-1.0); EOS # 0.1 10^3/uL (0.0-0.5); EOS % 1.5 % (0.0-3.0); HEMATOCRIT 32.7 % (42.0-52.0); HEMOGLOBIN 10.8 g/dl (13.5-17.5); LYMPH # 1.1 10^3/uL (1.5-5.0); LYMPH % 16.4 % (24.0-44.0); MEAN CORPUSCULAR HEMOGLOBIN 28.6 pg (27.0-33.0); MEAN CORPUSCULAR VOLUME 86.5 fl (80.0-96.0); MONO # 0.6 10^3/uL (0.0-0.8); MONO % 8.9 % (2.0-8.0); NEUTROPHILS % 72.8 % (36.0-66.0); PLATELET COUNT, AUTOMATED 169 10^3/uL (150-450); RED BLOOD COUNT 3.78 10^6/uL (4.30-6.10); WHITE BLOOD COUNT 6.9 10^3/uL (4.0-10.0)
[2023-08-08] MEDS: FUROSEMIDE 20 MG TAB PO SCH (08:08)
[2023-08-08] MEDS: OMEPRAZOLE 20MG CAP PO SCH (08:08)
[2023-08-08] MEDS: ASPIRIN 81MG ENTERIC TABLET PO SCH (08:08)
[2023-08-08] MEDS: ASCORBIC ACID 500 MG TAB PO SCH (08:08)
[2023-08-08] MEDS: SPIRONOLACTONE 25 MG TAB PO SCH (08:08)
[2023-08-08] MEDS: DOCUSATE SODIUM 100MG CAPSULE PO SCH (08:09)
[2023-08-08] MEDS: MIRALAX *UNIT DOSE* 17GM PACKET PO SCH (08:09)
[2023-08-08] MEDS: ISOSORBIDE MON. (IMDUR) 60MG XR TAB PO SCH (08:11)
[2023-08-08 08:15] LABS: ALBUMIN 3.5 G/DL (3.2-5.2); ALKALINE PHOSPHATASE 68 U/L (46-116); ALT/SGPT 14 U/L (7.0-40); AST/SGOT 19 U/L (<34); BILIRUBIN,TOTAL 0.5 MG/DL (0.3-1.2); BLOOD UREA NITROGEN 20 MG/DL (9-23); CALCIUM LEVEL 9.2 MG/DL (8.3-10.6); CARBON DIOXIDE LEVEL 25 MMOL/L (20-31); CHLORIDE LEVEL 103 MMOL/L (98-107); CREATININE FOR GFR 0.86 MG/DL (0.70-1.30); GLOMERULAR FILTRATION RATE > 60.0 (>35); GLUCOSE, FASTING 106 MG/DL (74-106); POTASSIUM SERUM 4.3 MMOL/L (3.5-5.1); SODIUM LEVEL 137 MMOL/L (136-145); TOTAL PROTEIN 6.4 G/DL (5.7-8.2)
[2023-08-08] MEDS: ENOXAPARIN 40MG/0.4ML SYRINGE (J1650 PER 10MG) SC SCH (10:40)
[2023-08-08 14:00] VITALS: BP 120/60; TEMP 98.1; O2SAT 92
[2023-08-08 20:38] VITALS: BP 122/61; TEMP 98.1; O2SAT 91
[2023-08-09 05:55] VITALS: BP 128/62; TEMP 97.9; O2SAT 94
[2023-08-09] MEDS: SENNA 8.6 MG TAB (SENOKOT) PO SCH (11:59)
[2023-08-09 14:00] VITALS: BP 123/67; TEMP 98.1; O2SAT 93
[2023-08-09] MEDS ORDERED: PERCOCET PO (14:48)
[2023-08-09] MEDS: BISACODYL 10MG SUPP PR PRN (17:11)
[2023-08-09 20:20] VITALS: BP 130/66; TEMP 98.2; O2SAT 90
[2023-08-10 05:06] VITALS: BP 138/62; TEMP 97.9; O2SAT 93
[2023-08-10 08:15] VITALS: BP 135/62; TEMP 97.7; O2SAT 96
[2023-08-10] MEDS ORDERED: FLEET ENEMA PR PRN (08:20)
[2023-08-10 10:05] VITALS: BP 131/55; TEMP 96.5; O2SAT 92
[2023-08-10 10:40] VITALS: BP 131/55
[2023-08-10] MEDS: FLUTICASONE PROP 0.05% NASAL SPRAY 16 GM (FLONASE) NARES SCH (10:41)
== END 2023-08-10 14:34 ==
LOC: EDBD 17:14 → M ED 17:14 → M ED INP 21:09 → INTOOBSV 21:09 → ENRESERV 21:43 → M MSPAV 22:28
PROVIDERS: ADMIT Family Medicine; ATTEND Internal Medicine
DX: S42.012A Anterior displaced fracture of sternal end of left clavicle, initial encounter for closed fracture (principal); I95.9 Hypotension, unspecified; I25.10 Atherosclerotic heart disease of native coronary artery without angina pectoris; I25.2 Old myocardial infarction; S70.02XA Contusion of left hip, initial encounter; I50.22 Chronic systolic (congestive) heart failure; F41.9 Anxiety disorder, unspecified; F32.A Depression, unspecified; M54.50 Low back pain, unspecified; G89.29 Other chronic pain; K21.9 Gastro-esophageal reflux disease without esophagitis; E03.9 Hypothyroidism, unspecified; I11.0 Hypertensive heart disease with heart failure; G47.33 Obstructive sleep apnea (adult) (pediatric); R26.89 Other abnormalities of gait and mobility; R05.9 Cough, unspecified; L40.9 Psoriasis, unspecified; Z98.41 Cataract extraction status, right eye; Z98.42 Cataract extraction status, left eye; Z95.5 Presence of coronary angioplasty implant and graft; Z87.891 Personal history of nicotine dependence; Z95.810 Presence of automatic (implantable) cardiac defibrillator; Z90.49 Acquired absence of other specified parts of digestive tract; M47.892 Other spondylosis, cervical region; W10.8XXA Fall (on) (from) other stairs and steps, initial encounter; Y93.E2 Activity, laundry; Y92.009 Unspecified place in unspecified non-institutional (private) residence as the place of occurrence of the external cause; Z79.82 Long term (current) use of aspirin; Z79.890 Hormone replacement therapy; Z79.02 Long term (current) use of antithrombotics/antiplatelets; Z79.899 Other long term (current) drug therapy; Z88.2 Allergy status to sulfonamides
CPT/HCPCS: 36415; 70450; 71260; 72125; 73030; 73502; 80047; 80053; 85025; 85027; 87635; 93005; 96372; 96374; 97161; 99285; G0378; J1650; J3010; Q9967

== ENCOUNTER 2023-08-09 11:22 | Inpatient (IN) | payer MEDICARE, OTHER ==
[~2023-08-09] VITALS: Ht 170.2 cm; Wt 83.3 kg
[~2023-08-09 11:22] MED LIST changes: +BRIL90TA PO; +SPIR-10 PO
[2023-08-09] MEDS ORDERED: ONDANSETRON 4MG TAB PO PRN (14:40)
[2023-08-09] MEDS ORDERED: MAALOX 30 ML SUSP *UDC PO PRN (14:40)
[2023-08-09] MEDS ORDERED: SIMETHICONE 80MG CHEW TAB PO PRN (14:40)
[2023-08-09] MEDS ORDERED: ALPRAZolam 0.25 MG TAB PO PRN (14:40)
[2023-08-09] MEDS ORDERED: MIRALAX *UNIT DOSE* 17GM PACKET PO PRN (14:40)
[2023-08-09] MEDS ORDERED: MOM 30ML SUSPENSION UDC PO PRN (14:40)
[2023-08-09] MEDS ORDERED: ACETAMINOPHEN TAB 650MG DOSE (2X325MG) PO PRN (14:40)
[2023-08-09] MEDS ORDERED: diphenhydrAMINE 25MG CAP PO PRN (14:40)
[2023-08-09] MEDS ORDERED: PERCOCET PO (14:48)
[2023-08-09] MEDS ORDERED: METOPROLOL SUCC *XL* 25MG TAB (TopROL *XL*) PO SCH (21:00)
[2023-08-09] MEDS ORDERED: TICAGRELOR 90 MG TABLET (BRILINTA) PO SCH (21:00)
[2023-08-09] MEDS ORDERED: ASCORBIC ACID 500 MG TAB PO SCH (21:00)
[2023-08-09] MEDS ORDERED: CETIRIZINE (ZyrTEC) 10 MG TAB PO SCH (21:00)
[2023-08-09] MEDS ORDERED: OMEPRAZOLE 20MG CAP PO SCH (21:00)
[2023-08-09] MEDS ORDERED: EZETIMIBE 10MG TABLET (ZETIA) PO SCH (21:00)
[2023-08-09] MEDS ORDERED: ROSUVASTATIN 10 MG TAB (CRESTOR) PO SCH (21:00)
[2023-08-10] MEDS ORDERED: SPIRONOLACTONE 25 MG TAB PO SCH (09:00)
[2023-08-10] MEDS ORDERED: FUROSEMIDE 20 MG TAB PO SCH (09:00)
[2023-08-10] MEDS ORDERED: LEVOTHYROXINE 50MCG TABLET (0.05MG) PO SCH (09:00)
[2023-08-10] MEDS ORDERED: MIRALAX *UNIT DOSE* 17GM PACKET PO SCH (09:00)
[2023-08-10] MEDS ORDERED: ASPIRIN 81MG ENTERIC TABLET PO SCH (09:00)
[2023-08-10] MEDS ORDERED: ISOSORBIDE MON. (IMDUR) 60MG XR TAB PO SCH (09:00)
[2023-08-10] MEDS ORDERED: ONDANSETRON 4MG TAB PO PRN (12:15)
[2023-08-10] MEDS ORDERED: BISACODYL 5MG TAB PO PRN (12:15)
[2023-08-10] MEDS ORDERED: SIMETHICONE 80MG CHEW TAB PO PRN (12:15)
[2023-08-10] MEDS ORDERED: ACETAMINOPHEN 325 MG TAB PO PRN (12:25)
[2023-08-10 14:40] VITALS: BP 145/66; TEMP 97; O2SAT 95
[2023-08-10] MEDS: DOCUSATE SODIUM 100MG CAPSULE PO SCH (15:58)
[2023-08-10 20:00] VITALS: BP 134/64; TEMP 98; O2SAT 94
[2023-08-10] MEDS: PERCOCET 5MG/325MG TAB PO PRN (21:19)
[2023-08-10] MEDS: EZETIMIBE 10MG TABLET (ZETIA) PO SCH (21:19)
[2023-08-10] MEDS: OMEPRAZOLE 20MG CAP PO SCH (21:19)
[2023-08-10] MEDS: TICAGRELOR 90 MG TABLET (BRILINTA) PO SCH (21:20)
[2023-08-10] MEDS: METOPROLOL SUCC *XL* 25MG TAB (TopROL *XL*) PO SCH (21:20)
[2023-08-10] MEDS: ASCORBIC ACID 500 MG TAB PO SCH (21:20)
[2023-08-10] MEDS: CETIRIZINE (ZyrTEC) 10 MG TAB PO SCH (21:20)
[2023-08-10] MEDS: ROSUVASTATIN 10 MG TAB (CRESTOR) PO SCH (21:21)
[2023-08-10] MEDS: ALPRAZolam 0.25 MG TAB PO PRN (21:27)
[2023-08-11 06:00] VITALS: BP 141/61; TEMP 98.2; O2SAT 95
[2023-08-11] MEDS: LEVOTHYROXINE 50MCG TABLET (0.05MG) PO SCH (06:06)
[2023-08-11 06:48] LABS: BASO % 0.6 % (0.0-1.0); EOS # 0.4 10^3/uL (0.0-0.5); EOS % 6.9 % (0.0-3.0); LYMPH # 1.1 10^3/uL (1.5-5.0); LYMPH % 21.8 % (24.0-44.0); MEAN CORPUSCULAR HEMOGLOBIN 28.9 pg (27.0-33.0); MEAN CORPUSCULAR HGB CONC 33.3 g/dl (32.0-36.5); MEAN CORPUSCULAR VOLUME 86.8 fl (80.0-96.0); MONO # 0.6 10^3/uL (0.0-0.8); MONO % 12.3 % (2.0-8.0); PLATELET COUNT, AUTOMATED 169 10^3/uL (150-450); RED BLOOD COUNT 3.11 10^6/uL (4.30-6.10); WHITE BLOOD COUNT 5.2 10^3/uL (4.0-10.0)
[2023-08-11 07:12] LABS: BLOOD UREA NITROGEN 23 MG/DL (9-23); CALCIUM LEVEL 8.6 MG/DL (8.3-10.6); CARBON DIOXIDE LEVEL 26 MMOL/L (20-31); CHLORIDE LEVEL 107 MMOL/L (98-107); CREATININE FOR GFR 0.91 MG/DL (0.70-1.30); GLOMERULAR FILTRATION RATE > 60.0 (>35); GLUCOSE, FASTING 89 MG/DL (74-106); POTASSIUM SERUM 3.5 MMOL/L (3.5-5.1); SODIUM LEVEL 139 MMOL/L (136-145)
[2023-08-11] MEDS: ACETAMINOPHEN TAB 650MG DOSE (2X325MG) PO PRN (07:21)
[2023-08-11] MEDS: ASPIRIN 81MG ENTERIC TABLET PO SCH (09:20)
[2023-08-11] MEDS: ISOSORBIDE MON. (IMDUR) 60MG XR TAB PO SCH (09:20)
[2023-08-11] MEDS: FUROSEMIDE 20 MG TAB PO SCH (09:20)
[2023-08-11] MEDS: SPIRONOLACTONE 25 MG TAB PO SCH (09:22)
[2023-08-11] MEDS: MIRALAX *UNIT DOSE* 17GM PACKET PO SCH (09:23)
[2023-08-11] MEDS: ACETAMINOPHEN TAB 650MG DOSE (2X325MG) PO SCH (12:33)
[2023-08-11 14:00] VITALS: BP 129/61; TEMP 97.2; O2SAT 95
[2023-08-11 20:00] VITALS: BP 122/60; TEMP 97.4; O2SAT 94
[2023-08-12 06:00] VITALS: BP 135/64; TEMP 96.8; O2SAT 95
[2023-08-12 06:40] LABS: HEMOGLOBIN 8.8 g/dl (13.5-17.5); MEAN CORPUSCULAR HEMOGLOBIN 28.2 pg (27.0-33.0); MEAN CORPUSCULAR HGB CONC 32.6 g/dl (32.0-36.5); MEAN CORPUSCULAR VOLUME 86.5 fl (80.0-96.0); PLATELET COUNT, AUTOMATED 183 10^3/uL (150-450); RED BLOOD COUNT 3.12 10^6/uL (4.30-6.10); WHITE BLOOD COUNT 4.8 10^3/uL (4.0-10.0)
[2023-08-12] MEDS: LIDOCAINE 5% (LIDODERM) PATCH TD SCH (09:00)
[2023-08-12] MEDS: ENOXAPARIN 40MG/0.4ML SYRINGE (J1650 PER 10MG) SC SCH (09:34)
[2023-08-12 14:00] VITALS: BP 132/69; TEMP 97.6; O2SAT 96
[2023-08-12 20:00] VITALS: BP 124/60; TEMP 97.6; O2SAT 94
[2023-08-13 06:00] VITALS: BP 128/60; TEMP 96.9; O2SAT 94
[2023-08-13 13:34] LABS: HEMATOCRIT 27.5 % (42.0-52.0); HEMOGLOBIN 9.1 g/dl (13.5-17.5)
[2023-08-13 13:51] VITALS: BP 134/64; TEMP 97.9; O2SAT 95
[2023-08-13 20:00] VITALS: BP 116/56; TEMP 97.5; O2SAT 94
[2023-08-13] MEDS: MAALOX 30 ML SUSP *UDC PO PRN (20:14)
[2023-08-14 05:31] VITALS: BP 133/67; TEMP 97; O2SAT 94
[2023-08-14 07:25] LABS: HEMATOCRIT 27.5 % (42.0-52.0); MEAN CORPUSCULAR HEMOGLOBIN 28.5 pg (27.0-33.0); MEAN CORPUSCULAR HGB CONC 32.7 g/dl (32.0-36.5); PLATELET COUNT, AUTOMATED 239 10^3/uL (150-450); RED BLOOD COUNT 3.16 10^6/uL (4.30-6.10); WHITE BLOOD COUNT 5.5 10^3/uL (4.0-10.0)
[2023-08-14 09:13] VITALS: BP 133/67
== END 2023-08-14 10:30 | disposition home or self-care (01) | DRG 560 ==
LOC: M PM&R 08-10 14:40
PROVIDERS: ADMIT Physical Medicine & Rehabilitation; ATTEND Physical Medicine & Rehabilitation
DX: S42.012D Anterior displaced fracture of sternal end of left clavicle, subsequent encounter for fracture with routine healing (principal); I50.32 Chronic diastolic (congestive) heart failure; I25.10 Atherosclerotic heart disease of native coronary artery without angina pectoris; I25.2 Old myocardial infarction; Z95.5 Presence of coronary angioplasty implant and graft; K21.9 Gastro-esophageal reflux disease without esophagitis; F32.A Depression, unspecified; F41.9 Anxiety disorder, unspecified; R33.9 Retention of urine, unspecified; Z95.810 Presence of automatic (implantable) cardiac defibrillator; I35.0 Nonrheumatic aortic (valve) stenosis; Z95.2 Presence of prosthetic heart valve; L40.9 Psoriasis, unspecified; E03.9 Hypothyroidism, unspecified; I11.0 Hypertensive heart disease with heart failure; G47.33 Obstructive sleep apnea (adult) (pediatric); Z90.49 Acquired absence of other specified parts of digestive tract; Z98.41 Cataract extraction status, right eye; Z98.42 Cataract extraction status, left eye; Z87.891 Personal history of nicotine dependence; M47.812 Spondylosis without myelopathy or radiculopathy, cervical region; Z79.82 Long term (current) use of aspirin; Z79.890 Hormone replacement therapy; Z79.899 Other long term (current) drug therapy; Z88.2 Allergy status to sulfonamides; M54.6 Pain in thoracic spine; D64.9 Anemia, unspecified

== ENCOUNTER → 2023-08-24 | Outpatient (CLI) | payer MEDICARE, OTHER ==
[~2023-08-24] MED LIST changes: +PERCOCET PO
== END ==
LOC: M SOG 09:56
PROVIDERS: ATTEND Physician Assistant
DX: S42.022A Displaced fracture of shaft of left clavicle, initial encounter for closed fracture (principal); Y93.9 Activity, unspecified; Y92.9 Unspecified place or not applicable

== ENCOUNTER → 2023-10-22 | Outpatient (CLI) | payer MEDICARE, OTHER | LOC: M SOG 15:25 | PROVIDERS: ATTEND Physician Assistant | DX: M25.512 Pain in left shoulder (principal) ==

== ENCOUNTER → 2023-12-17 | Outpatient (CLI) | payer MEDICARE, OTHER ==
[~2023-12-17] MED LIST changes: -ROSU10TA6 PO; +ROSU10TA61 PO
== END ==
LOC: M WUC 15:43
PROVIDERS: ATTEND Physician Assistant
DX: S40.022A Contusion of left upper arm, initial encounter (principal); S80.02XA Contusion of left knee, initial encounter; M11.262 Other chondrocalcinosis, left knee; Y93.9 Activity, unspecified; Y92.9 Unspecified place or not applicable

== ENCOUNTER → 2023-12-24 | Outpatient (CLI) | payer MEDICARE, OTHER | LOC: M RAD 16:46 | PROVIDERS: ATTEND Physician Assistant | DX: M25.522 Pain in left elbow (principal); M25.512 Pain in left shoulder; R93.7 Abnormal findings on diagnostic imaging of other parts of musculoskeletal system ==